=== PATIENT | female | born 1945 | race Caucasian/White ===

== ENCOUNTER 2023-06-27 18:05 | Emergency (ER) | payer MEDICARE, SELFPAY ==
[2023-06-27] VITALS (7 sets, daily range): BP systolic 108–146; BP diastolic 41–76; PULSE 54–84; RESP 12–16; TEMP 36.6; O2SAT 97–98
--- NOTE | ~2023-06-27 | CT_ITS ---
EXAMINATION: CT brain wo con INDICATION: Transient alteration of awareness COMPARISON: None TECHNIQUE: Standard unenhanced head CT. The dose-length product (DLP) was 605.33 mGy-cm. The mA was a djusted according to patient size. Iterative reconstruction technique was employed. FINDINGS: No acute intraparenchymal hemorrhage. No evidence of mass lesion. No evidence of acute infa rction. 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 There is moderate periventricular and subcortical hyp odensity probably related to small vessel ischemic disease. There is moderate prominence of the sulci and ventricles related to cerebral atrophy. Intracranial calcified cerebral atherosclerosis is noted . No extra-axial collections. No mass effect or midline shift. Changes in the globes are likely from ocular lens surgery. There is mild mucosal thickening of the paranasal sinuses. IMPRESSION: 1. No acute intracranial abnormality. 2. Age related findings. Reviewed, dictated and finalized at location F.
--- NOTE | ~2023-06-27 | XR_ITS ---
EXAMINATION: XR chest 2V DATE: 06/27/2023 18:36 INDICATION: Transient alteration of awareness TECHNIQUE: AP and lateral views of the chest are obtained. COMPARISON: None available FINDINGS: The lungs are free of acute opacities. No pleural effusion or pneumothorax. The heart size is normal. There is a large hiatal hernia. There is moderate thoracic spondylosis. Surgical clips in the upper abdomen on the lateral view are likely from prior cholecystectomy. IMPRESSION: 1. No acute cardiopulmonary abnormality. Reviewed, dictated and finalized at location F.
--- NOTE | 2023-06-27 18:07 | ED.WEAKNESS ---
HPI - Weakness General Chief complaint: Weakness Stated complaint: WEAKNESS Time Seen by Provider: 06/27/23 18:06 History of Present Illness HPI Narrative: Patient is a 78-year-old female with history of diabetes here after An episode of unresponsiveness. She states that she was going out to the dinner with her family and started feeling unwell. She states that she was feeling lightheadedness and sat down in a chair. She then got up again and went over to a table at the restaurant. Family at bedside then notes that they saw her having a blank stare and her mouth was open. They state that she went answer questions at that time but did seem to be breathing still. EMS was called at that time. EMS provided her with a glass of water which seem to wake her up and improve her symptoms. Family notes that a similar episode happened a few weeks ago at which time it was discovered that she was hypoglycemic. She was hospitalized at that time and discharged with changes in her insulin regimen. She has recently been restarted on her long-acting insulin as well as being on a sliding scale for short-acting. Family states that they gave her about 6 units around 3:00 p.m. prior to going to the restaurant. Her glucose at that time had been in the 300s. They note that since his hospitalization and the changes in her diabetes medication she has had difficulty managing her blood sugars. They seem to run high at home and patient is inconsistent with giving herself her sliding scale insulin. She denies any chest pain or shortness of breath. No prior history of PE or DVT. She feels back to her normal self at this time. Related Data Home Medications Medication Instructions Recorded Confirmed aspirin 81 mg chewable tablet 81 mg PO DAILY 01/03/22 04/03/23 calcitriol 0.25 mcg capsule 0.25 mcg PO 3XW 01/03/22 04/03/23 clobetasol 0.05 % topical cream 1 applic topical DAILY 01/03/22 04/03/23 cyanocobalamin (vitamin B-12) 100 mcg subcut MONTHLY 01/03/22 04/03/23 1,000 mcg/mL injection solution diltiazem HCl 300 mg capsule,24 300 mg PO DAILY 01/03/22 04/03/23 hr,extended release (Tiadylt ER) hydroxychloroquine 200 mg tablet 200 mg PO DAILY 01/03/22 04/03/23 insulin detemir U-100 100 unit/mL 30 unit subcut QHS 01/03/22 04/03/23 (3 mL) subcutaneous pen (Levemir FlexTouch U-100 Insulin) insulin lispro 100 unit/mL 1 sliding scale dose subcut 01/03/22 04/03/23 subcutaneous pen (Humalog KwikPen USEASDIRECTD (U-100) Insulin) prednisone 5 mg tablet 5 mg PO DAILY 01/03/22 04/03/23 rosuvastatin 10 mg tablet 10 mg PO DAILY 01/03/22 04/03/23 spironolactone 25 mg tablet 25 mg PO DAILY 01/03/22 04/03/23 telmisartan 40 mg tablet 40 mg PO DAILY 01/03/22 04/03/23 dapagliflozin propanediol 10 mg 10 mg PO DAILY 08/30/22 04/03/23 tablet (Farxiga) Allergies Allergy/AdvReac Type Severity Reaction Status Date / Time nitrofurantoin Allergy Intermediate Rash Verified 04/03/23 08:29 [From Macrobid] meperidine [From Demerol] Allergy Mild Itching Verified 04/03/23 08:29 Penicillins Allergy Mild Rash Verified 04/03/23 08:29 Sulfa (Sulfonamide Allergy Mild Hives Verified 04/03/23 08:29 Antibiotics) MEPERIDINE HCL Allergy Mild Itching Uncoded 04/03/23 08:29 Review of Systems Review of Systems: All systems reviewed & are unremarkable except as noted in HPI and below PMFSH Past Medical History Medical History Anemia getting infusions with Dr Ruiz Arthritis B12 deficiency Bilateral ovarian cysts Cystocele (~2002) Diabetes insulin GERD (gastroesophageal reflux disease) High cholesterol Hypertension Hyponatremia Lupus Screening mammogram, encounter for TIA (transient ischemic attack) (~2013) Surgical History Surgical History History of cataract surgery (~2013) History of cholecystectomy (~1997) History of tubal ligation (~1982) Hx of to
--- NOTE | 2023-06-27 18:13 | ECG_ITS ---
Measurements Intervals [place] Rate: 56 P: 28 WI: 192 QRS: 35 QRSD: 142 T: -9 QT: 454 QTc: 440 Interpretive Statements SINUS BRADYCARDIA RIGHT BUNDLE BRANCH BLOCK NONSPECIFIC T-WAVE ABNORMALITY ABNORMAL ECG NO PREVIOUS ECG AVAILABLE FOR COMPARISON Electronically Signed On 06-28-2023 8:59:12 CDT by Raad Soria M.D.
--- NOTE | 2023-06-27 19:10 | PC.NURSE ---
Assumed care of pt. Report from FRANK Hutchins. Per tech unable to obtain blood work. Will attempt. Pt otherwise sitting quietly per cart in nad.
[2023-06-27 20:05] LABS: Basophils Percent Auto 0.3 % (0.2-1.2); Eosinophils Absolute Auto 0.1 K/mm3 (0-0.3); Eosinophils Percent Auto 0.9 % (0-4.4); Hemoglobin 12.1 g/dL (12.0-15.0); Immature Granulocyte Absolute 0.02 K/mm3 (0.00-0.031); Immature Granulocyte Percent A 0.3 % (0-0.5); Lymphocytes Absolute Auto 0.84 K/mm3 (0.9-3.2); Lymphocytes Percent Auto 13.1 % (18.3-44.2); Mean Corpuscular HGB Conc 30.3 g/dl (32-36); Mean Corpuscular Hemoglobin 25.5 pg (26-34); Mean Corpuscular Volume 84.4 fl (80-100); Mean Platelet Volume 11.4 fl (7.4-10.4); Monocytes Absolute Auto 0.5 K/mm3 (0.1-0.6); Monocytes Percent Auto 7.3 % (2.6-8.5); Neutrophils Percent Auto 78.1 % (45.5-73.1); Platelet Count Result 246 k/mm3 (150-375); Red Blood Count 4.74 M/mm3 (4.2-5.4); Red Cell Distribution Width 15.5 % (11.5-14.5); White Blood Count 6.4 K/mm3 (4.5-10.0)
[2023-06-27] MEDS: SODIUM CHLORIDE 0.9% IV 500 ML 999 ML IV CONT (20:06)
[2023-06-27 20:15] LABS: Alanine Aminotransferase 19 U/L (6-35); Albumin Level 4.5 g/dL (3.5-5.1); Alkaline Phosphatase 57 U/L (38-126); Anion Gap 12 mmol/L (8-16); Aspartate Amino Transferase 29 U/L (14-36); Bilirubin,Total 0.5 mg/dL (0.2-1.3); Blood Urea Nitrogen 29 mg/dL (7-17); Calcium 9.6 mg/dL (8.4-10.2); Carbon Dioxide 25 mmol/L (22-30); Chloride 97 mmol/L (98-107); Estimated CRCL calculation 31 ml/min; Estimated Glomerular Filt Rate 40; Glucose 201 mg/dL (65-110); Potassium 3.9 mmol/L (3.4-5.0); Sodium 134 mmol/L (137-145)
[2023-06-27 20:27] LABS: Troponin I < 0.012 ng/mL (0.000-0.034)
[2023-06-27 21:21] LABS: Glucose Point of Care 172 mg/dl (65-105)
== END 2023-06-27 21:48 | disposition home or self-care (01) ==
PROVIDERS: Emergency Provider Student in an Organized Health Care Education/Training Program; PCP Internal Medicine
DX: R55 Syncope and collapse (principal); E11.9 Type 2 diabetes mellitus without complications; E78.00 Pure hypercholesterolemia, unspecified; E53.8 Deficiency of other specified B group vitamins; D64.9 Anemia, unspecified; K21.9 Gastro-esophageal reflux disease without esophagitis; M19.90 Unspecified osteoarthritis, unspecified site; Z86.73 Personal history of transient ischemic attack (TIA), and cerebral infarction without residual deficits; Z98.49 Cataract extraction status, unspecified eye; Z90.49 Acquired absence of other specified parts of digestive tract; Z90.710 Acquired absence of both cervix and uterus; Z79.84 Long term (current) use of oral hypoglycemic drugs; Z79.4 Long term (current) use of insulin; Z79.82 Long term (current) use of aspirin; I45.10 Unspecified right bundle-branch block; R00.1 Bradycardia, unspecified; R94.31 Abnormal electrocardiogram [ECG] [EKG]
CPT/HCPCS: 36415; 70450; 71046; 80053; 82948; 84484; 85025; 93005; 96360; 99284; J7040